=== PATIENT | male | born 1975 | race Caucasian/White ===

== ENCOUNTER 2017-02-03 10:07 | Outpatient (CLI) | payer OTHER ==
[~2017-02-03] VITALS: Ht 177.8 cm; Wt 96.6 kg
[2017-02-03] MEDS ORDERED: MULT-245 PO (10:41)
[2017-02-03] MEDS ORDERED: FEXO180T16 PO (10:41)
[2017-02-03] MEDS ORDERED: OMEP20CA9 PO (10:42)
[2017-02-03 10:54] VITALS: BP 117/79
[2017-02-03 10:58] LABS: BASO # 0.1 x10^3/uL (0.0-0.2); BASO % 1 % (0-3); EOS % 2 % (0-3); HEMATOCRIT 46.2 % (39.0-53.0); HEMOGLOBIN 15.2 g/dL (13.0-17.5); LYMPH # 1.3 x10^3/uL (1.0-4.8); LYMPH % 10 % (24-48); MEAN CORPUSCULAR HEMOGLOBIN 31 pg (25-35); MEAN CORPUSCULAR HGB CONC 33 g/dL (31-37); MEAN CORPUSCULAR VOLUME 95 fL (79-100); MONO % 3 % (0-9); NEUT % 86 % (31-73); PLATELET COUNT 318 x10^3/uL (140-400); RED BLOOD COUNT 4.88 x10^6/uL (4.30-5.70); RED CELL DISTRIBUTION WIDTH 14.5 % (11.5-14.5); WHITE BLOOD COUNT 13.1 x10^3/uL (4.0-11.0)
[2017-02-03 11:08] LABS: INR 1.1 (0.8-1.1); PROTHROMBIN TIME PATIENT 13.1 SEC (11.7-14.0)
[2017-02-03] MEDS ORDERED: LIDOCAINE 1% / SOD BICARB 8.4% 20 ML VIAL. IJ ONE ×2 (11:16→11:45)
[2017-02-03] MEDS ORDERED: fentaNYL PF VIAL 100 MCG/2 ML VIAL ONE (11:26)
[2017-02-03] MEDS ORDERED: MIDAZOLAM HCL/PF 2 MG/2 ML VIAL. ONE (11:26)
[2017-02-03 11:31] VITALS: BP 116/79
[2017-02-03 11:36] VITALS: BP 119/84
[2017-02-03 11:42] VITALS: BP 124/78
[2017-02-03] MEDS ORDERED: fentaNYL PF VIAL 100 MCG/2 ML VIAL IV ONE (11:45)
[2017-02-03] MEDS ORDERED: MIDAZOLAM HCL/PF 2 MG/2 ML VIAL. IV ONE (11:45)
--- NOTE | 2017-02-03 11:54 | RAD ---
CT-guided bone marrow biopsy. 02/03/2017 11:49 AM Indication: LEUKOCYTOSIS Discussion: The risks and benefits of the procedure, including but not limited to, bleeding and infection were discussed patient. Informed consent was obtained. The patient was brought to the CT scanner and placed in the prone position. A timeout procedure was performed. Video Manager CT imaging of the pelvis demonstrated left ilium amenable to bone marrow biopsy. The overlying soft tissues were prepped and draped using maximum sterile barrier technique. 1% lidocaine without epinephrine was administered for local anesthesia. Under intermittent CT guidance, an OncControl needle was advanced into the bone marrow of the left iliac crest. 2 Aspirates and 1 core biopsy samples were obtained. Samples were delivered to pathology was present at the time of procedure. The needle was removed and manual pressure held to achieve hemostasis. No immediate complications were identified. The procedure was performed under conscious sedation including continuous cardiopulmonary monitoring via dedicated sedation nurse. Sedation time: 20 minutes Impression: Successful CT-guided bone marrow biopsy of the left iliac crest . PQRS Compliance Statement: One or more of the following individualized dose reduction techniques were utilized for this examination: 1. Automated exposure control 2. Adjustment of the mA and/or kV according to patient size 3. Use of iterative reconstruction technique
[2017-02-03 11:59] VITALS: BP 100/72
[2017-02-03 12:14] VITALS: BP 91/59
[2017-02-03 14:58] LABS: % EOS 1 % (0-5)
[2017-02-03 15:02] LABS: % BASOS 4 % (0-3)
[2017-02-03 15:03] LABS: PLT ESTIMATE ADEQUATE (ADEQUATE)
[2017-02-03 15:05] LABS: POLYCHROMASIA SLIGHT
--- NOTE | 2017-02-13 14:47 | PATHOLOGY ---
PATHOLOGY REPORT * * * * * * * * FINAL DIAGNOSIS: Peripheral smear: - Mild neutrophilic leukocytosis with left shift and small myelocyte bulge, and mild absolute basophilia. 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 - Markedly DEcreased reticuloendothelial iron stores. COMMENT: The peripheral smear shows a mild neutrophilic leukocytosis with left shift and small myelocyte bulge, and mild absolute basophilia. The bone marrow is markedly hypercellular and shows trilineage hematopoiesis, granulocytic hyperplasia with left shift and small myelocyte bulge, mild basophilia, and megakaryocytic hyperplasia comprised of megakaryocytes which are smaller than normal. Cytogenic analysis reveals a translocation between chromosomes 9 and 22 resulting in the formation of the [place] chromosome in all cells analyzed. The morphologic and cytogenic findings are supportive of the diagnosis of chronic myelogenous leukemia, chronic phase. (JPM:rlm; 02/13/2017) Special stains performed: iron stain on B1 and C0. REPORT ELECTRONICALLY SIGNED BY: Tony Gonzales M.D. DATE/TIME: 02/13/2017 14:46 * * * * * * * * MICROSCOPIC DESCRIPTION: Laboratory Data: The WBC count is 13.1 K/CMM, and the automated WBC differential reveals 86% neutrophils, 10% lymphs, 3% monos, 2% eos, and 1% baso. The RBC count is 4.88 M/CMM, hemoglobin 15.2 G/DL, hematocrit 46.2%, MCV 95 FL, MCH 31 PG, MCHC 33 G/DL, and the RDW is 14.5%. The platelet count is 318 K/CMM. Peripheral Smear: The peripheral smear is reviewed. The WBC count is mildly increased. This is due to a neutrophilic leukocytosis. The WBC differential reveals a predominance of segmented neutrophils. There is a neutrophilic left shift with a small bulge of myelocytes. There is a rare blast. There are small populations of lymphocytes and monocytes and a few eosinophils noted. There is a mild absolute basophilia. Red blood cells predominantly appear normochromic and normocytic and show no significant anisopoikilocytosis. Platelets appear normal in number and morphology. Aspirate Smears and Touch Imprints: Two Moya's-stained and one iron-stained aspirate smears, and one Moya's-stained biopsy touch imprint are examined. The smears contain multiple marrow particles which are obviously hypercellular for age. The M/E ratio overall appears mildly increased and ranges from normal to approximately 7:1. Erythroid maturation appears normoblastic. There are no megaloblastic or overt dysplastic changes. There are areas showing a mild left shift of granulopoiesis with a bulge in the proportion of myelocytes. There is no increase of blasts. Granulocytic precursors show no significant dysplastic changes. There are scattered admixed eosinophils. Basophils appear mildly increased. Megakaryocytes are increased. Many of the megakaryocytes appear smaller than normal and have hypolobated nuclei. There are no cells foreign to the marrow. The touch imprint shows similar findings. The iron stain shows absent iron stores. No ringed sideroblasts are identified. Bone Marrow Biopsy and Clot Section: Sections of the bone marrow biopsy reveal segments of bone marrow showing focal aspiration artifact. Preserved areas of the biopsy are essentially 100% cellular. Sections of the marrow clot also reveal multiple marrow particles which are essentially 100% cellular. Overall there appears to be a granulocytic hyperplasia. There are admixed eryhtroid precursors. There are foci demonstrating an increase of medium-sized immature mononuclear cells compatible with a left shift of granulopoiesis and myelocyte bulge. The immature granulocytes are located both adjacent to bony trabeculae and away from bony trabeculae. There are scattered admixed eosinophils. Megakaryocytes are increased. Most of the megakaryocytes are smaller than normal and have hypolobated nuclei. There are no abnormal lymphoid aggregates, granulomas, or cells foreign to the marrow. The iron stain of the clot section shows markedly decreased reticuloendothelial iron stores. Special Studies: Bone marrow submitted for flow cytometry has a viability of 99.7%. Granulocytes comprise 96.6% of total cells and show phenotypic evidence of maturation with decreased CD10 expression. Monocytes comprise 1.2% of total cells and co-express CD14 and CD64. CD45 dim, CD34 positive cells comprise 0.7% of total cells. Lymphocytes comprise 0.7% of total cells. T-cells comprise 83% of lymphoid cells and show a CD4/CD8 ratio of 1.0. NK-cells comprise 6% of lymphoid cells. Mature B-cells comprise 9% of lymphoid cells and are polyclonal with a kappa:lambda ratio of 1.5. Bone marrow submitted for cytogenetic analysis shows an abnormal male karyotype. All cells show a translocation between chromosomes 9 and 22, resulting in the formation of the [place] chromosome. (JPM:db/rlm; 02/13/2017) GROSS PATHOLOGY: A. Received in formalin labeled "Silas Montse" are two needle cores of baeza bone, measuring 0.6 and 1.1 cm in length and 0.2 cm in diameter. The specimen is submitted entirely in cassette A1, following decalcification. B. Received in formalin labeled "Silas Montes," is blood coagulum, measuring 1.8 x 1.5 x 0.3 cm in aggregate dimensions. The specimen is submitted entirely in cassette B1. (JPM; 02/03/17) INITIAL CPT CODE(S): A; 78978, 44071 B; 55395, 18921 C; 22947, 81461, 51246 Professional services [place] [facility] [place] [address] Technical services performed by [facility] at [address] [place] [address], [facility] [address] [address]. SPECIMEN(S) RECEIVED: A.Bone marrow, biopsy B.Bone marrow, clot and/or particle prep C.Bone marrow, aspirate smears D.Peripheral smear CLINICAL HISTORY: Leukocytosis PATIENT: SILAS MONTES /AGE: 203/30/1975 (Age: 41) PATIENT #: [id number] ALT CASE #: SPECIMEN COLLECTION DATE: 02/03/2017 SPECIMEN RECEIVED DATE: 02/03/2017 [facility] - [address] [place] [address] - PHONE: [phone] * * * END OF REPORT * * *
== END 2017-02-03 12:45 | disposition home or self-care (01) ==
LOC: INTRAD 10:07
PROVIDERS: ATTEND Internal Medicine Hematology & Oncology
DX: D72.829 Elevated white blood cell count, unspecified (principal); Z79.01 Long term (current) use of anticoagulants; Z88.0 Allergy status to penicillin; Z98.890 Other specified postprocedural states
CPT/HCPCS: 36415; 38221; 77012; 85025; 85610; 88184; 88185; 88237; 99152; G0364; J2250; J3010; 85007; 88305; 88311; 88313